=== PATIENT | female | born 1960 | race Caucasian/White ===

== ENCOUNTER 2023-06-08 07:33 | Day surgery (SDC) | payer OTHER, SELFPAY ==
[2023-06-08] MEDS: LACTATED RINGERS 1,000 ML 42 ML IV (07:43)
[2023-06-08 07:59] VITALS: BP 112/76; PULSE 72; RESP 16; TEMP 36.2; O2SAT 95
--- NOTE | 2023-06-08 08:28 | PM.HP.1 ---
History of Present Illness History of Present Illness Chief complaint: Screening Colonoscopy Narrative: Second screening colonoscopy [facility] Medical History (Updated 02/26/21 @ 16:54 by Cruz Paredes PA-C) Conjunctivitis Social History Smoking Status: Never smoker alcohol intake: current Meds Home Medications and Allergies Home Medications Medication Instructions Recorded Confirmed Type bupropion HCl 200 mg tablet,12 hr 200 mg PO QDAY ##0 02/25/16 06/08/23 History sustained-release (Wellbutrin SR) progesterone micronized 200 mg 50 mg PO HS ##0 02/25/16 06/08/23 History capsule ibuprofen 200 mg tablet 400 - 600 mg (2 - 3 x 200 mg) PO 02/29/16 02/26/21 Rx Q6HP PRN #30 tabs atorvastatin 20 mg tablet 20 mg PO DAILY 06/08/23 06/08/23 History levothyroxine 50 mcg tablet 50 mcg PO DAILY 06/08/23 06/08/23 History semaglutide 0.25 mg or 0.5 mg (2 0.25 mg SUBCUT QWEEK 06/08/23 06/08/23 History mg/3 mL) subcutaneous pen injector Allergies Allergy/AdvReac Type Severity Reaction Status Date / Time No Known Allergies Allergy Uncoded 06/08/23 07:48 Exam Vital Signs (past 8 hours): - 06/08/23 07:59 Temperature 97.2 F L Pulse Rate 72 Respiratory Rate 16 Blood Pressure 112/76 Pulse Oximetry 95 Oxygen Delivery Method Room Air Oxygen Delivery Method Room Air Narrative Exam Narrative: Oropharynx free of lesions Chest clear to auscultation percussion Cardiac exam reveals no S3 or murmur Assessment & Plan Assessment & Plan narrative: Second screening colonoscopy asymptomatic. Risks, benefits, alternatives have been explained.
--- NOTE | 2023-06-08 08:29 | P.OP.COLON_ITS ---
Operative Date/Time/Diagnoses Date of procedure: 06/08/23 Pre-op diagnosis: See indication and findings Procedure & Clinicians Study performed: Colonoscopy Indications: Screening Surgeon: Beth Aguirre Procedure Notes Procedure in detail: After informed consent was obtained the patient was placed in left lateral d ecubitus position. The video colonoscope was introduced the rectum slowly advanced cecum. Preparation was good. On slow withdrawal mucosa was carefully examined. The scope was removed. The patient tolerated procedure well. Blood loss none Complications none Sedation mac Findings 1. Scattered sigmoid diverticulosis 2. Otherwise negative colonoscopy to cecum. Patient will need follow-up colonoscopy in 10 years.
[2023-06-08 08:50] VITALS: BP 106/76; PULSE 68; RESP 13; TEMP 36.4; O2SAT 97
[2023-06-08 08:55] VITALS: BP 104/64; PULSE 63; RESP 15; O2SAT 100
[2023-06-08 09:00] VITALS: BP 109/70; PULSE 64; RESP 18; O2SAT 98
== END 2023-06-08 09:15 | disposition home or self-care (01) ==
PROVIDERS: Family Provider Orthopaedic Surgery; PCP Family Medicine; Referring Provider Internal Medicine Gastroenterology; Visit Provider Internal Medicine Gastroenterology
PROC: 0DJD8ZZ Inspection of Lower Intestinal Tract, Via Natural or Artificial Opening Endoscopic (ICD-10-PCS; CPT 45378; principal; 2023-06-08 08:30)
DX: Z12.11 Encounter for screening for malignant neoplasm of colon (principal); K57.30 Diverticulosis of large intestine without perforation or abscess without bleeding
CPT/HCPCS: 45378; J2704